=== PATIENT | female | born 1995 | race Caucasian/White ===

== ENCOUNTER 2017-04-08 01:21 | Emergency (ER) | payer OTHER ==
[~2017-04-08] VITALS: Ht 170.2 cm; Wt 106.6 kg
[~2017-04-08 01:21] MED LIST: MOTRIN600 M1 PO; NO MEDICATIONS; ZANTAC150 M1 PO
[2017-04-08] MEDS ORDERED: AMOXICILLIN PO (01:34)
== END 2017-04-08 02:26 | disposition home or self-care (01) ==
LOC: SED 01:21
DX: K08.89 Other specified disorders of teeth and supporting structures (principal); J32.9 Chronic sinusitis, unspecified
CPT/HCPCS: 99283